=== PATIENT | female | born 1990 | race Caucasian/White ===

== ENCOUNTER 2018-06-19 13:29 | Inpatient (IN) | payer BC ==
[~2018-06-19] VITALS: Ht 177.8 cm; Wt 72.3 kg
[2018-06-24] VITALS (13 sets, daily range): BP systolic 118–135; BP diastolic 8–85; PULSE 57–73; TEMP 98.3–98.8
[2018-06-24] MEDS ORDERED: PROTONIX20 MG PO (18:32)
[2018-06-24] MEDS ORDERED: PRENATAL PO (18:33)
[2018-06-24 20:57] LABS: BASO % 0.4 % (0.0-2.0); EOS # 0.1 (0.0-0.7); EOS % 0.6 % (0-4.0); GRAN # 7.7 (1.4-6.5); GRAN % 74.5 % (42.2-75.2); HEMATOCRIT 38.6 % (37.0-47.0); HEMOGLOBIN 13.2 g/dl (12.5-16.0); LYMPH # 1.8 (1.2-3.4); LYMPH % 17.3 % (20.0-51.0); MEAN CELL VOLUME 97 fl (80.0-100.0); MEAN CORPUSCULAR HEMOGLOBIN 33 pg (27.0-31.0); MEAN CORPUSCULAR HGB CONC 34 g/dl (33.0-37.0); MEAN PLATELET VOLUME 12.8 fl (7.4-10.4); MONO # 0.7 (0.1-0.6); MONO % 6.8 % (1.7-9.3); PLATELET COUNT 178 K/mm3 (130-400); RED BLOOD COUNT 3.97 M/mm3 (4.10-5.30); REDCELL DISTRIBUTION WIDTH-CV 13.3 % (11.5-14.5)
[2018-06-25] VITALS (35 sets, daily range): BP systolic 114–161; BP diastolic 58–91; PULSE 58–115; TEMP 98.1–98.8
[2018-06-26 03:45] VITALS: BP 102/54; PULSE 67; TEMP 98
[2018-06-26 08:33] VITALS: BP 116/70; PULSE 72; TEMP 98.2
[2018-06-26] MEDS ORDERED: IBU800 M1 PO (09:01)
[2018-06-26] MEDS ORDERED: PERCOCET 325 MG1 TA2 PO (09:01)
[2018-06-26 17:00] VITALS: BP 115/70; PULSE 56; TEMP 97.8
[2018-06-26 20:58] VITALS: BP 114/75; PULSE 61; TEMP 97.7
[2018-06-27 07:58] VITALS: BP 120/63; PULSE 73; TEMP 98
== END 2018-06-27 09:00 | disposition home or self-care (01) | DRG 775 ==
LOC: LDR 13:29 → OB 06-25 14:15 → LDR 07-01 13:36
PROVIDERS: Student in an Organized Health Care Education/Training Program
PROC: 10E0XZZ Delivery of Products of Conception, External Approach (ICD-10-PCS; principal; 2018-06-25)
PROC: 0KQM0ZZ Repair Perineum Muscle, Open Approach (ICD-10-PCS; 2018-06-25)
PROC: 3E0P7GC Introduction of Other Therapeutic Substance into Female Reproductive, Via Natural or Artificial Opening (ICD-10-PCS; 2018-06-25)
PROC: 3E033VJ Introduction of Other Hormone into Peripheral Vein, Percutaneous Approach (ICD-10-PCS; 2018-06-25)
DX: O36.5930 Maternal care for other known or suspected poor fetal growth, third trimester, not applicable or unspecified (principal); O70.1 Second degree perineal laceration during delivery; O69.81X0 Labor and delivery complicated by cord around neck, without compression, not applicable or unspecified; O69.82X0 Labor and delivery complicated by other cord entanglement, without compression, not applicable or unspecified; Z3A.40 40 weeks gestation of pregnancy; Z37.0 Single live birth
CPT/HCPCS: J2405; J2590; J2795; J7120